=== PATIENT | female | born 1950 | race Caucasian/White ===

== ENCOUNTER 2018-06-09 13:03 | Emergency (ER) | payer MEDICARE, SELFPAY ==
[2018-06-09] VITALS (16 sets, daily range): BP systolic 121–169; BP diastolic 52–98; PULSE 56–90; RESP 11–19; TEMP 36.8; O2SAT 95–99; BMI 27.4
--- NOTE | 2018-06-09 13:11 | DI.RAD.S_ITS ---
PROCEDURE: XR CHEST 1V INDICATIONS: chest pain TECHNIQUE: One view of the chest was acquired. COMPARISON: None. FINDINGS: Surgical changes and devices: None. Lungs and pleura: Lungs are clear. No pleural effusions or pneumothorax. Mediastinum: Mediastinal contours appear normal. Heart size is normal. Bones and chest wall: No suspicious bony lesions. Overlying soft tissues appear unremarkable. IMPRESSION: No acute cardiopulmonary pathology. Dictated by: Norman Oneil M.D. on 06/09/2018 at 13:34 Approved by: Norman Oneil M.D. on 06/09/2018 at 13:35
--- NOTE | 2018-06-09 13:13 | ED.CHESTPAIN ---
HPI - Chest Pain <Estefany Mitchell DO - Last Filed: 06/14/18 00:35> General Chief Complaint: Chest Pain Stated Complaint: STATES SHE THINKS HEART ATTACK Time Seen by Provider: 06/09/18 13:13 Source: patient Mode of arrival: ambulatory Limitations: no limitations History of Present Illness HPI narrative: Patient is a 67-year-old female who presents with left-sided chest and shoulder pain. She said she kind of felt it last night thought it was indigestion weight on her left side was able to go to sleep. However this morning she had coffee and a banana started feeling worse again. She has discomfort now. She denies any dyspnea with exertion no nausea. No diaphoresis. MD complaint: chest pain Duration: constant Pain location: substernal and left chest Quality: aching and heaviness Related Data Home Medications Medication Instructions Recorded Confirmed No Known Home Medications 06/09/18 06/09/18 Allergies Allergy/AdvReac Type Severity Reaction Status Date / Time latex [LATEX] Allergy Mild RASH Verified 06/09/18 13:32 W/BANDAIDS IF LEFT ON LONG bee venom protein (honey bee) Allergy Verified 06/09/18 13:32 ?METAL? Allergy Mild ITCHING Uncoded 06/09/18 13:32 W/EARRINGS Review of Systems <DO Madiha Brown Last Filed: 06/14/18 00:35> Review of Systems ROS Unobtainable: All systems reviewed & are unremarkable except as noted in HPI and below Constitutional Denies chills, Denies fever(s), Denies lethargy and Denies weakness Eyes Denies change in vision, Denies eye discharge, Denies irritation and Denies loss of vision ENT Ears, Nose, Mouth, and Throat: Denies change in voice, Denies neck pain and Denies sore throat Cardiovascular Reports as per HPI, Reports chest pain, Denies lightheadedness, Denies dyspnea and Denies dyspnea on exertion Respiratory Denies cough, Denies dyspnea, Denies dyspnea on exertion and Denies wheezing Gastrointestinal Gastrointestinal: Denies abdominal pain, Denies change in bowel habits, Denies diarrhea, Denies nausea and Denies vomiting Genitourinary Denies hematuria, Denies flank pain, Denies urinary incontinence and Denies urinary urgency Musculoskeletal Denies neck pain Integumentary/Breasts Denies pruritus, Denies erythema, Denies rash and Denies wounds Neurologic Denies loss of vision and Denies weakness Allergic/Immunologic Denies wheezing PFSH <Estefany Mitchell DO - Last Filed: 06/14/18 00:35> Social History (Updated 06/09/18 @ 16:38 by Estefany Mitchell DO) Smoking Status: Former smoker alcohol intake: current substance use type: does not use Social History (Updated 06/09/18 @ 16:38 by Estefany Mitchell DO) Smoking Status: Former smoker alcohol intake: current substance use type: does not use Exam <Estefany Mitchell DO - Last Filed: 06/14/18 00:35> Initial Vital Signs Initial Vital Signs: Vital Signs Temperature 98.2 F 06/09/18 13:07 Pulse Rate 90 06/09/18 13:07 Respiratory Rate 14 06/09/18 13:07 Blood Pressure 169/98 H 06/09/18 13:07 Pulse Oximetry 98 06/09/18 13:07 GENERAL: Well-appearing, well-nourished and in no acute distress. HEENT: Head atraumatic,EOMI, pupils reactive, face symmetric, CARDIOVASCULAR: Regular rate and rhythm without murmurs, rubs or gallops. RESPIRATORY: Breath sounds equal bilaterally, no wheezes rales or rhonchi. ABDOMEN: Soft, nontender. Normoactive bowel sounds all 4 quadrants. No guarding or rebound. EXTREMITIES: Normal range of motion, no clubbing or edema. Neurovascularly intact NEUROLOGICAL: Alert and oriented x4.Normal gait and speech. Cranial nerves II through XII grossly intact. SKIN: Warm, dry, no laceration, no petechiae, no rashes or lesions. <Nancy Rucker MD - Last Filed: 06/10/18 01:36> Initial Vital Signs Initial Vital Signs: Vital Signs Temperature 98.2 F 06/09/18 13:07 Pulse Rate 90 06/09/18 13:07 Respiratory Rate 14 06/09/18 13:07 Blood Pressure 169/98 H 06/09/18 13:07 Pulse Oximetry 98 06/09/18 13:07 Course <Estefany Mitchell DO - Last Filed: 06/14/18 00:35> Orders Ordered: Discontinued Medications Aspirin (Aspirin Chew) 324 mg PO NOW ONE Stop: 06/09/18 13:12 Last Admin: 06/09/18 13:34 Dose: 324 mg Sodium Chloride (Normal Saline 0.9%) 1,000 mls @ 150 mls/hr IV CONT FROYLAN Last Infusion: 06/09/18 20:52 Dose: 0 mls/hr Admin: 06/09/18 13:36 Dose: 150 mls/hr Nitroglycerin (Nitrostat) 0.4 mg SL NOW ONE Stop: 06/09/18 13:12 Last Admin: 06/09/18 13:35 Dose: 0.4 mg Pantoprazole Sodium (Protonix) 40 mg IV NOW ONE Stop: 06/09/18 14:03 Last Admin: 06/09/18 14:13 Dose: 40 mg Consultations Consultation #1: Cardiology Dr. Farooq, has requested to view the EKGs I have texted them to her with patient's permission. Cardiology has reviewed the patient's EKGs. This is a tricky situation. She would like patient to have an echocardiogram this evening is and she would like patient actually transferred over to [facility]. At this time awaiting bed and placement it may be a few hours. For now recommends repeating a troponin in 3 hours. Time: 17:37 Vital Signs - 8 hr 06/09/18 17:30 06/09/18 18:00 06/09/18 18:30 Pulse Rate 65 57 L 65 Respiratory Rate 19 18 13 Blood Pressure [Right Arm] 129/52 L 143/78 H 153/59 H Pulse Oximetry 98 98 95 06/09/18 19:00 06/09/18 19:31 06/09/18 20:00 Pulse Rate 67 60 57 L Respiratory Rate 15 13 14 Blood Pressure [Right Arm] 146/68 H 143/60 H 141/57 H Pulse Oximetry 97 96 97 06/09/18 21:10 06/09/18 21:30 Pulse Rate 72 61 Respiratory Rate 18 16 Blood Pressure [Right Arm] 151/65 H 138/53 L Pulse Oximetry 98 96 <Nancy Rucker MD - Last Filed: 06/10/18 01:36> Orders Ordered: Discontinued Medications Aspirin (Aspirin Chew) 324 mg PO NOW ONE Stop: 06/09/18 13:12 Last Admin: 06/09/18 13:34 Dose: 324 mg Sodium Chloride (Normal Saline 0.9%) 1,000 mls @ 150 mls/hr IV CONT FROYLAN Last Infusion: 06/09/18 20:52 Dose: 0 mls/hr Admin: 06/09/18 13:36 Dose: 150 mls/hr Nitroglycerin (Nitrostat) 0.4 mg SL NOW ONE Stop: 06/09/18 13:12 Last Admin: 06/09/18 13:35 Dose: 0.4 mg Pantoprazole Sodium (Protonix) 40 mg IV NOW ONE Stop: 06/09/18 14:03 Last Admin: 06/09/18 14:13 Dose: 40 mg Vital Signs - 8 hr 06/09/18 17:30 06/09/18 18:00 06/09/18 18:30 Pulse Rate 65 57 L 65 Respiratory Rate 19 18 13 Blood Pressure [Right Arm] 129/52 L 143/78 H 153/59 H Pulse Oximetry 98 98 95 06/09/18 19:00 06/09/18 19:31 06/09/18 20:00 Pulse Rate 67 60 57 L Respiratory Rate 15 13 14 Blood Pressure [Right Arm] 146/68 H 143/60 H 141/57 H Pulse Oximetry 97 96 97 06/09/18 21:10 06/09/18 21:30 Pulse Rate 72 61 Respiratory Rate 18 16 Blood Pressure [Right Arm] 151/65 H 138/53 L Pulse Oximetry 98 96 MDM - Chest Pain <Estefany Mitchell, - Last Filed: 06/14/18 00:35> Lab Data Attestation: I reviewed the patient's lab results. Result diagrams: 06/09/18 13:16 06/09/18 13:16 Lab Results 06/09/18 06/09/18 06/09/18 Range/Units 13:16 13:16 13:16 WBC 6.3 (4.5-11.0) X10^3/uL RBC 4.38 (4.0-5.2) X10^6/uL Hgb 13.0 (12.0-16.0) g/dL Hct 38.7 (36-46) % MCV 88.3 (80-100) fL MCH 29.8 (26-34) PG MCHC 33.7 (30-36) % RDW 13.8 (11.6-14.8) % Plt Count 354 (150-400) X10^3/uL Neut % (Auto) 54.2 (50-75) % Lymph % (Auto) 31.3 (25-40) % [place]er % (Auto) 11.0 (3-14) % Eos % (Auto) 2.7 (2-4) % Baso % (Auto) 0.8 (0-2) % Neut # (Auto) 3400 (5727-2636) /uL Lymph # (Auto) 2000 (8422-8833) /uL Wagoner # (Auto) 700 (0-900) /uL Eos # (Auto) 200 (0-450) /uL Baso # (Auto) 0 (0-100) /uL PT 10.9 (10.1-12.7) SECONDS INR 1.0 (0.9-1.3) APTT 31 (26.4-36.2) SECONDS Sodium 140 (137-145) mmol/L Potassium 3.9 (3.4-5.1) mmol/L Chloride 106 (98-107) mmol/L Carbon Dioxide 24 (22-32) mmol/L BUN 14 (7-17) mg/dL Creatinine 0.70 (0.52-1.04) mg/dL Estimated GFR > 60.0 (>60) mL/min BUN/Creatinine Ratio 20.0 (6-22) Glucose 100 (80-110) mg/dL Calcium 9.2 (8.4-10.2) mg/dL Total Bilirubin 0.5 (0.2-1.3) mg/dL AST 27 (14-36) IU/L ALT 30 (9-52) IU/L Alkaline Phosphatase 106 (38-126) U/L Total Creatine Kinase 92 (30-135) U/L CK-MB (CK-2) TNP CK-MB (CK-2) Rel Index TNP Troponin I < 0.012 (0.01-0.034) ng/mL Total Protein 7.6 (6.3-8.2) g/dL Albumin 4.2 (3.5-5.0) g/dL Globulin 3.4 (1.7-4.1) g/dL Albumin/Globulin Ratio 1.2 (1.0-2.8) Lipase 94 (23-300) U/L 06/09/18 06/09/18 Range/Units 16:05 19:05 WBC (4.5-11.0) X10^3/uL RBC (4.0-5.2) X10^6/uL Hgb (12.0-16.0) g/dL Hct (36-46) % MCV (80-100) fL MCH (26-34) PG MCHC (30-36) % RDW (11.6-14.8) % Plt Count (150-400) X10^3/uL Neut % (Auto) (50-75) % Lymph % (Auto) (25-40) % Wagoner % (Auto) (3-14) % Eos % (Auto) (2-4) % Baso % (Auto) (0-2) % Neut # (Auto) (7634-8176) /uL Lymph # (Auto) (3195-1393) /uL Wagoner # (Auto) (0-900) /uL Eos # (Auto) (0-450) /uL Baso # (Auto) (0-100) /uL PT (10.1-12.7) SECONDS INR (0.9-1.3) APTT (26.4-36.2) SECONDS Sodium (137-145) mmol/L Potassium (3.4-5.1) mmol/L Chloride (98-107) mmol/L Carbon Dioxide (22-32) mmol/L BUN (7-17) mg/dL Creatinine (0.52-1.04) mg/dL Estimated GFR (>60) mL/min BUN/Creatinine Ratio (6-22) Glucose (80-110) mg/dL Calcium (8.4-10.2) mg/dL Total Bilirubin (0.2-1.3) mg/dL AST (14-36) IU/L ALT (9-52) IU/L Alkaline Phosphatase (38-126) U/L Total Creatine Kinase 76 (30-135) U/L CK-MB (CK-2) TNP CK-MB (CK-2) Rel Index TNP Troponin I < 0.012 < 0.012 (0.01-0.034) ng/mL Total Protein (6.3-8.2) g/dL Albumin (3.5-5.0) g/dL Globulin (1.7-4.1) g/dL Albumin/Globulin Ratio (1.0-2.8) Lipase (23-300) U/L Urine Dip Bedside Urine Glucose Negative Bedside Urine Bilirubin - Negative Bedside Urine Ketone - Negative Urine Specific Clifton 1.015 Bedside Urine Occult Blood - Negative Bedside Urine pH 6.0 Bedside Urine Protein - Negative Bedside Urine Urobilinogen - Negative Bedside Urine Nitrite - Negative Bedside Urine Leukocytes - Negative Esterase Imaging Data Chest x-ray: Radiologist's impression: PROCEDURE: XR CHEST 1V INDICATIONS: chest pain TECHNIQUE: One view of the chest was acquired. COMPARISON: None. FINDINGS: Surgical changes and devices: None. Lungs and pleura: Lungs are clear. No pleural effusions or pneumothorax. Mediastinum: Mediastinal contours appear normal. Heart size is normal. Bones and chest wall: No suspicious bony lesions. Overlying soft tissues appear unremarkable. IMPRESSION: No acute cardiopulmonary pathology. Dictated by: Norman Oneil M.D. on 06/09/2018 at 13:34 Approved by: Norman Oneil M.D. on 06/09/2018 at 13:35 ECG Data Attestation: I personally reviewed and interpreted this ECG as follows: Prior ECG tracings: available for review Interpretation: Sinus rhythm left bundle branch block, He EKG 1 year ago showed gave inversions in precordial leads V2 and V3. With a narrow QRS. EKG 2.: Sinus rhythm rate 56 left bundle branch present no ST changes MDM Narrative Medical decision making narrative: The patient still feels like a pill is stuck in her throat but overall does not want anything for pain. She actually has a new left bundle branch block previously she had T-wave inversions in V2 and V3. Concern is for possible on [place] she has 2-troponins is feels like she may have difficulty swallowing but has been able to swallow and eat without any difficulty. Cardiology concern is for new left bundle would like patient transferred for echocardiogram tonight. The patient signed out to , anticipate transfer to [facility], repeat troponin due at 7:00 p.m. may need to talk to the hospitalist. <Nancy Rucker MD - Last Filed: 06/10/18 01:36> Medical Records Data Attestation: I reviewed the patient's medical records. Lab Data Attestation: I reviewed the patient's lab results. Lab Results 03/31/19 03/31/19 03/31/19 Range/Units 13:16 13:16 13:16 WBC 6.3 (4.5-11.0) X10^3/uL RBC 4.38 (4.0-5.2) X10^6/uL Hgb 13.0 (12.0-16.0) g/dL Hct 38.7 (36-46) % MCV 88.3 (80-100) fL MCH 29.8 (26-34) PG MCHC 33.7 (30-36) % RDW 13.8 (11.6-14.8) % Plt Count 354 (150-400) X10^3/uL Neut % (Auto) 54.2 (50-75) % Lymph % (Auto) 31.3 (25-40) % Wagoner % (Auto) 11.0 (3-14) % Eos % (Auto) 2.7 (2-4) % Baso % (Auto) 0.8 (0-2) % Neut # (Auto) 3400 (4950-9420) /uL Lymph # (Auto) 2000 (1912-3962) /uL [place]er # (Auto) 700 (0-900) /uL Eos # (Auto) 200 (0-450) /uL Baso # (Auto) 0 (0-100) /uL PT 10.9 (10.1-12.7) SECONDS INR 1.0 (0.9-1.3) APTT 31 (26.4-36.2) SECONDS Sodium 140 (137-145) mmol/L Potassium 3.9 (3.4-5.1) mmol/L Chloride 106 (98-107) mmol/L Carbon Dioxide 24 (22-32) mmol/L BUN 14 (7-17) mg/dL Creatinine 0.70 (0.52-1.04) mg/dL Estimated GFR > 60.0 (>60) mL/min BUN/Creatinine Ratio 20.0 (6-22) Glucose 100 (80-110) mg/dL Calcium 9.2 (8.4-10.2) mg/dL Total Bilirubin 0.5 (0.2-1.3) mg/dL AST 27 (14-36) IU/L ALT 30 (9-52) IU/L Alkaline Phosphatase 106 (38-126) U/L Total Creatine Kinase 92 (30-135) U/L CK-MB (CK-2) TNP CK-MB (CK-2) Rel Index TNP Troponin I < 0.012 (0.01-0.034) ng/mL Total Protein 7.6 (6.3-8.2) g/dL Albumin 4.2 (3.5-5.0) g/dL Globulin 3.4 (1.7-4.1) g/dL Albumin/Globulin Ratio 1.2 (1.0-2.8) Lipase 94 (23-300) U/L 06/09/18 06/09/18 Range/Units 16:05 19:05 WBC (4.5-11.0) X10^3/uL RBC (4.0-5.2) X10^6/uL Hgb (12.0-16.0) g/dL Hct (36-46) % MCV (80-100) fL MCH (26-34) PG MCHC (30-36) % RDW (11.6-14.8) % Plt Count (150-400) X10^3/uL Neut % (Auto) (50-75) % Lymph % (Auto) (25-40) % Wagoner % (Auto) (3-14) % Eos % (Auto) (2-4) % Baso % (Auto) (0-2) % Neut # (Auto) (7924-9200) /uL Lymph # (Auto) (7605-1110) /uL Wagoner # (Auto) (0-900) /uL Eos # (Auto) (0-450) /uL Baso # (Auto) (0-100) /uL PT (10.1-12.7) SECONDS INR (0.9-1.3) APTT (26.4-36.2) SECONDS Sodium (137-145) mmol/L Potassium (3.4-5.1) mmol/L Chloride (98-107) mmol/L Carbon Dioxide (22-32) mmol/L BUN (7-17) mg/dL Creatinine (0.52-1.04) mg/dL Estimated GFR (>60) mL/min BUN/Creatinine Ratio (6-22) Glucose (80-110) mg/dL Calcium (8.4-10.2) mg/dL Total Bilirubin (0.2-1.3) mg/dL AST (14-36) IU/L ALT (9-52) IU/L Alkaline Phosphatase (38-126) U/L Total Creatine Kinase 76 (30-135) U/L CK-MB (CK-2) TNP CK-MB (CK-2) Rel Index TNP Troponin I < 0.012 < 0.012 (0.01-0.034) ng/mL Total Protein (6.3-8.2) g/dL Albumin (3.5-5.0) g/dL Globulin (1.7-4.1) g/dL Albumin/Globulin Ratio (1.0-2.8) Lipase (23-300) U/L Urine Dip Bedside Urine Glucose Negative Bedside Urine Bilirubin - Negative Bedside Urine Ketone - Negative Urine Specific Clifton 1.015 Bedside Urine Occult Blood - Negative Bedside Urine pH 6.0 Bedside Urine Protein - Negative Bedside Urine Urobilinogen - Negative Bedside Urine Nitrite - Negative Bedside Urine Leukocytes - Negative Esterase ECG Data Attestation: I personally reviewed and interpreted this ECG as follows: (For see below) Interpretation: Twelve lead EKG performed June 09, 2018 at 2:08 p.m., as follows: Regular ventricular rhythm with a rate of 56 beats per minute KS interval 182 milliseconds QRS duration 146 millisecond QTC interval 466 millisecond Left axis deviation Nonspecific ST T wave changes Interpretation: Sinus bradycardia; left axis deviation; left bundle-branch block; abnormal EKG as interpreted by ED MD Comparison EKG 05/21/2017: No left bundle branch block. MDM Narrative Medical decision making narrative: [place] note: Patient was signed out to me by Dr. Mitchell, pending transfer to [facility] for echocardiogram and stress test, secondary to her new left bundle branch block within the last year. The patient had had 2 negative troponins, and at the request of the vending machine assembler, had a 3rd one in process, which turned out to be negative. The patient was symptom-free in the emergency department at the time of my assumption of care, and remained so throughout the rest of her stay. Around 2099, we received a call from [facility], informing us that they did not have any admission beds, and would not have any till at least the next morning. As such, the patient could not be transferred. I did speak with the vending machine assembler again, and she stated that the findings were reassuring, but that she did feel the patient should have an echocardiogram and stress test the next day. She stated this could be done at our facility, if needed, since the patient cannot be transferred. I spoke with Dr. George, who is the hospitalist on-call and also, a physician in the clinic of the patient's primary for provider, June Christopher. I did not feel at this point, with 3 negative troponins and symptoms that had been going on for 24 hours, that the patient necessarily needed admission; however, I did feel that the patient should be seen and have an expedited stress test and echocardiogram set up. I discussed this situation with Dr. George who was in agreement. He stated he would call the clinic tomorrow morning to let them know about the patient, and that the patient should call 1st thing in the morning to set up an appointment to be seen tomorrow by whichever provider was available. I discussed all this with the patient, who is very well appearing and without complaints. The patient was agreeable to this plan. We have discussed the findings and the situation, as well as the plan. We have also discussed the usual indications for return. Discharge Plan Departure Patient Disposition: Home Clinical Impression: Left bundle branch block Chest pain Qualifiers: Chest pain type: other chest pain Qualified Code(s): R07.89 - Other chest pain Discharge Date/Time: 06/09/18 21:52 Interventions: ED Discharge Assessment Last Done: 06/09/18 21:52 Instructions: DI for Chest Pain Activity Restrictions/Additional Instructions: Your labs, including 3 sets of cardiac enzymes, look good. There is no evidence of a heart attack [facility]. However, your case has been discussed with the vending machine assembler at [facility], and she would like you to have a stress test and echocardiogram tomorrow. I have discussed the case also with Dr. George, who works in your primary provider's office and is on-call for our [facility], and he stated that you should call their office 1st thing in the morning to get an appointment to be seen and have your test scheduled. You will be seen by whatever provider is available. If you develop worsening symptoms overnight, or any other concerns, you may return to the emergency department. Prescriptions: No Action No Known Home Medications RF: 0 Referrals: June Christopher PA-C [Primary Care Provider] -
[2018-06-09 13:29] LABS: Add Manual Diff / Slide Review NO; Basophils Absolute Auto 0 /uL (0-100); Basophils Percent Auto 0.8 % (0-2); Eosinophils Absolute Auto 200 /uL (0-450); Eosinophils Percent Auto 2.7 % (2-4); Hematocrit 38.7 % (36-46); Lymphocytes Absolute Auto 2000 /uL (1100-4500); Lymphocytes Percent Auto 31.3 % (25-40); Mean Corpuscular HGB Conc 33.7 % (30-36); Mean Corpuscular Hemoglobin 29.8 PG (26-34); Mean Corpuscular Volume 88.3 fL (80-100); Monocytes Absolute Auto 700 /uL (0-900); Neutrophils Absolute Auto 3400 /uL (1500-7000); Neutrophils Percent Auto 54.2 % (50-75); Platelet Count 354 X10^3/uL (150-400); Red Blood Cell Count 4.38 X10^6/uL (4.0-5.2); Red Cell Distribution Width 13.8 % (11.6-14.8); White Blood Cell Count 6.3 X10^3/uL (4.5-11.0)
[2018-06-09 13:30] LABS: Prothrombin Time 10.9 SECONDS (10.1-12.7)
[2018-06-09 13:32] LABS: PTT Partial Thromboplastin Tim 31 SECONDS (26.4-36.2)
[2018-06-09 13:34] LABS: Alanine Aminotransferase 30 IU/L (9-52); Albumin 4.2 g/dL (3.5-5.0); Albumin Globulin Ratio 1.2 (1.0-2.8); Alkaline Phosphatase 106 U/L (38-126); Aspartate Aminotransferase 27 IU/L (14-36); Bilirubin Total 0.5 mg/dL (0.2-1.3); Blood Urea Nitrogen 14 mg/dL (7-17); Calcium 9.2 mg/dL (8.4-10.2); Carbon Dioxide 24 mmol/L (22-32); Chloride 106 mmol/L (98-107); Creatine Kinase 92 U/L (30-135); Estimated Glomerular Filt Rate > 60.0 mL/min (>60); Globulin 3.4 g/dL (1.7-4.1); Glucose 100 mg/dL (80-110); HEMOLYSIS < 15 (0-50); Lipase 94 U/L (23-300); Potassium 3.9 mmol/L (3.4-5.1); Sodium 140 mmol/L (137-145); Total Protein 7.6 g/dL (6.3-8.2)
[2018-06-09] MEDS: ASPIRIN 81 MG TAB 324 MG PO (13:34)
[2018-06-09] MEDS: NITROGLYCERIN 0.4 MG SL TAB SL (13:35)
[2018-06-09] MEDS: SODIUM CHLORIDE 0.9% 1,000 ML 150 ML IV (13:36)
[2018-06-09 13:45] LABS: Troponin I < 0.012 ng/mL (0.01-0.034)
[2018-06-09] MEDS: PANTOPRAZOLE 40 MG VIAL IV (14:13)
[2018-06-09 16:33] LABS: Troponin I < 0.012 ng/mL (0.01-0.034)
[2018-06-09 19:25] LABS: Creatine Kinase 76 U/L (30-135)
[2018-06-09 19:38] LABS: Troponin I < 0.012 ng/mL (0.01-0.034)
== END 2018-06-09 21:52 | disposition home or self-care (01) ==
PROVIDERS: Emergency Medicine; Emergency Provider Emergency Medicine; PCP Physician Assistant
DX: I44.7 Left bundle-branch block, unspecified (principal)
CPT/HCPCS: 36415; 36591; 71045; 80053; 81003; 82550; 83690; 84484; 85025; 85610; 85730; 93005; 93041; 96361; 96374; 99285; C9113

== ENCOUNTER → 2018-06-20 07:50 | Outpatient (CLI) | payer MEDICARE, SELFPAY ==
--- NOTE | 2018-06-20 | DI.RAD.S_ITS ---
PROCEDURE: FL UPPER GI W AIR INDICATIONS: Chest pain, unspecified Gastro-esophageal reflux COMPARISON: None. FINDINGS: KUB: Preprocedural cement storage worker film demonstrates a normal bowel gas pattern. No suspicious abdominal calcifications. Visualized solid organ contours appear normal. Bony structures appear unremarkable. Esophagus: Esophageal mucosa is normal on air-contrast views. On single-contrast views, there is normal esophageal peristalsis. No strictures, extrinsic mass effects, or diverticula. No hiatal hernia. Mild elicited gastroesophageal reflux is noted with contrast reflux to distal one third of esophageal lumen.. There is normal transit of a calibrated barium tablet through the esophagus. Stomach: The stomach is normally distensible, with normal rugal fold thickness. No mucosal masses or ulcers. Pylorus and duodenal bulb appear normal in morphology. Duodenal folds are normal in thickness as well. IMPRESSION: Mild gastroesophageal reflux. No gross ulceration or intraluminal filling defect. No abnormal stricture. Normal appearing stomach. Dictated by: Norman Oneil M.D. on 06/20/2018 at 10:59 Approved by: Norman Oneil M.D. on 06/20/2018 at 11:03
--- NOTE | 2018-06-20 | DI.ECHO.S_ITS ---
[facility] +---------+ : : [address] [place] : : : : [id number] : : : : Phone: [phone]---------+ Echocardiogram Report + + :Name: HUMA BAIRES Study Date: 06/20/2018 Height: 63 in : :[facility] Exam Location: [facility] Weight: 155 lb : : Gender: Female BSA: 1.7 m2 : :: 1950 Age: 67 yrs BP: 118/58 mmHg: :Reason For Study: CHEST PAIN : : Performed By: Gustavo Hermosillo : :Referring: KARMA DELUNA : + + Interpretation Summary Left ventricular systolic function is low normal with the ejection fraction visually estimated to be 50-55% without any focal wall motion abnormalities and appears slightly less dynamic compared to the previous study. The left ventricle is normal in size. Diastolic function could not be accurately assessed due to contradictory data. The right ventricle is normal in size and function and is unchanged compared to the previous study. The right ventricular systolic pressure is estimated to be at least 25 mmHg based on an estimated right atrial pressure of 3 mm Hg, and is unchanged compared to the previous study. The left atrium is mildly dilated and the right atrium is borderline dilated. Both are increased slightly compared to the previous study. There is mild mitral regurgitation that is unchanged compared to the previous study. There is mild tricuspid regurgitation that is slightly more prominent compared to the previous study. There is no other significant valvular heart disease. Procedure: A two-dimensional transthoracic echocardiogram with color flow and Doppler was performed. The study quality was technically good. Comparison is made with the echocardiogram of 07/12/15. The patient was in normal sinus rhythm during the exam. Left Ventricle: The left ventricle is normal in size. There is normal left ventricular wall thickness. Left ventricular systolic function is low normal. The ejection fraction is estimated to be 50-55%. There are no focal wall motion abnormalities. This is slightly less dynamic compared to the previous study. Diastolic function could not be accurately assessed due to contradictory data. Right Ventricle: The right ventricle is normal in size and function. This is unchanged compared to the previous study. Atria: The left atrium is mildly dilated. The right atrium is borderline dilated. This is increased slightly compared to the previous study. The interatrial septum is intact with no evidence for an atrial septal defect. Mitral Valve: The mitral valve leaflets are slightly calcified. There is mild mitral regurgitation. This is unchanged compared to the previous study. Aortic Valve: The aortic valve is trileaflet. The aortic valve is slightly calcified. The aortic valve opens well. There is trace aortic regurgitation. Tricuspid Valve: The tricuspid valve is normal in structure and function. There is mild tricuspid regurgitation. This is slightly more prominent compared to the previous study. The right ventricular systolic pressure is estimated to be at least 25 mmHg based on an estimated right atrial pressure of 3 mm Hg. This is unchanged compared to the previous study. Pulmonic Valve: The pulmonic valve is normal in structure and function. There is trace pulmonic regurgitation. There is no other significant valvular heart disease. Great Vessels: The aortic root is normal size. The dimensions of the ascending aorta are normal. The pulmonary artery is normal size. The IVC is of normal diameter and collapses greater than 50% with a sniff. This suggests a low right atrial pressure of 3 mm Hg. Pericardium/ Pleura There is no pericardial effusion. There is no pleural effusion. MMode/2D Measurements & Calculations LVIDd: 4.3 cm LVOT diam: 1.9 cm LVIDs: 2.7 cm Ao root diam: 3.0 cm FS: 36.7 % asc Aorta Diam: 2.9 cm EPSS: 0.46 cm Ao Arch Diam (Prox Trans): 2.3 cm IVSd: 0.85 cm LVPWd: 0.99 cm LV og. diameter/BSA (cm/m^2): 2.5 LV sys. diameter/BSA (cm/m^2): 1.6 LA dimension: 3.4 cm RA long axis: 5.2 cm LA A2 area: 21.9 cm2 RA area: 18.1 cm2 LA A4 area: 20.4 cm2 RA vol: 53.0 ml LA length (vol): 5.3 cm RA : 30.6 ml/m2 LA vol: 71.0 ml IVC diam: 1.7 cm LA vol index: 40.9 ml/m2 Doppler Measurements & Calculations Ao V2 max: 142.8 cm/sec LVOT Max Omer: 105.3 cm/sec Ao V2 mean: 103.9 cm/sec LV V1 max P.4 mmHg Ao max P.2 mmHg LV V1 VTI: 23.2 cm Ao mean P.7 mmHg EVELIN(I,D): 2.1 cm2 Ao V2 VTI: 31.7 cm EVELIN(V,D): 2.1 cm2 sev ratio: 0.73 EVELIN indexed to BSA (cm^2/m^2): 1.2 MV E max omer: 65.5 cm/sec TR max omer: 237.4 cm/sec MV A max omer: 79.1 cm/sec TR max P.5 mmHg MV E/A: 0.83 PA V2 max: 106.0 cm/sec Med Peak E' Omer: 5.7 cm/sec PA V2 mean: 67.3 cm/sec E/E' med: 11.5 PA mean P.1 mmHg Lat Peak E' Omer: 6.6 cm/sec PA pr(Accel): 44.1 mmHg E/E' lat: 9.9 E/e' average: 10.7 MV dec time: 0.22 sec SV(LILY): 67.3 ml Reading Physician:SELENE
== END ==
PROVIDERS: PCP Physician Assistant; Visit Provider Physician Assistant
DX: R07.9 Chest pain, unspecified (principal); I08.1 Rheumatic disorders of both mitral and tricuspid valves; K21.9 Gastro-esophageal reflux disease without esophagitis
CPT/HCPCS: 74247; 93306

== ENCOUNTER → 2018-07-03 08:08 | Outpatient (CLI) | payer MEDICARE, SELFPAY ==
--- NOTE | 2018-07-03 09:17 | PM.TREADMILL ---
Cardiac Stress Test Report Referral & Results Date Patient Seen: 07/03/18 Requesting provider: June Christopher Indication: New left bundle branch block Rest ECG: Left bundle branch block Procedure Note: This initially was started as a exercise Cardiolite as ordered by the ordering provider. However due to the presence of the left bundle branch block exercise was aborted, patient's heart rate was allowed to come down into the 70s and this was converted to a resting Lexiscan. After both written and verbal informed consent the patient had an IV started by the diagnostic imaging RN, and then was hooked up to the treadmill monitoring system. The Lexiscan material, and then the Cardiolite tracer, were administered sequentially. An additional 3 min was spent monitoring the patient while supine on the gurney. The patient had a normal response to all infused materials. Impression: Please see perfusion imaging report for details regarding possible ischemia Please note: Actual ECG tracings can be found in the PACS system.
--- NOTE | 2018-07-04 17:12 | DI.NM.S_ITS ---
DATE OF SERVICE: 07/03/2018 PROCEDURE: Pharmacological perfusion study. INDICATIONS: Left bundle-branch block. RADIOPHARMACEUTICAL: 26.3 mCi technetium-99m Myoview IV was injected at stress and 27.1 mCi technetium-99m Myoview IV was injected at rest. CARDIAC STRESS: Patient underwent IV Lexiscan perfusion study under the supervision of an attending staff using standard IV Lexiscan protocol. She remained hemodynamically stable. Baseline EKG revealed sinus rhythm with left bundle-branch block pattern. Stress EKG did not reveal any new convincing ischemic changes. There were no new significant arrhythmias. No significant symptoms were reported. RAW DATA: significant breast shadow was seen. GATED STUDY: Resting stress LV ejection fraction 66%. Stress LV ejection fraction 71% without any wall motion abnormalities. No transient ischemic dilatation. TID ratio is 1.06, which is within normal limits. Resting LV end- diastolic volume is 128 mL. Lung/heart ratio is 0.29, which is within normal limits. MYOCARDIAL PERFUSION SCAN: Stress supine and resting supine images revealed severely decreased perfusion of predominantly anteroapex and distal septum which got partially improved during prone images. In prone images, there was moderate to severely decreased perfusion of the same area. No reversible ischemia. CONCLUSION: I'll call this study likely a normal myocardial perfusion study with evidence of persistent tissue attenuation artifact in the form of anterior apical and distal anteroseptal defect as stated above. During raw images, significant breast shadow was seen. Patient has underlying left bundle-branch block which can cause subtle perfusion abnormalities as well. [place] is moving well. Normal wall motion goes against the diagnosis of previous transmural myocardial infarction. Hence, most likely we are dealing with tissue attenuation artifact. Overall left ventricular (LV) function is preserved. This is a low-risk myocardial perfusion study. KaterinIrasema - PHOEBE/ulysses/ab doc#: [id number]/job#: [id number] dd: 07/04/2018 16:41:00 dt: 07/04/2018 17:02:00 DICTATING MD/COPIES TO: Arturo Murillo MD COPIES MNE: JORDIN
== END ==
PROVIDERS: PCP Physician Assistant; Visit Provider Physician Assistant
DX: I44.7 Left bundle-branch block, unspecified (principal); R07.9 Chest pain, unspecified; R94.31 Abnormal electrocardiogram [ECG] [EKG]
CPT/HCPCS: 78452; 93016; 93017; 93018; A9502; J2785

== ENCOUNTER → 2018-08-03 08:04 | Outpatient (CLI) | payer MEDICARE, SELFPAY ==
--- NOTE | 2018-08-03 | DI.MG.S_ITS ---
BILATERAL DIGITAL SCREENING MAMMOGRAM 3D/2D WITH CAD: 08/03/2018 CLINICAL: Routine screening. Comparison is made to exams dated: 06/22/2016 mammogram, 06/04/2015 mammogram, and 06/02/2014 mammogram - [facility]. The tissue of both breasts is heterogeneously dense. This may lower the sensitivity of mammography. Current study was also evaluated with a Computer Aided Detection (CAD) system. There are benign calcifications in both breasts. No significant masses, calcifications, or other findings are seen in either breast. There has been no significant interval change. IMPRESSION: There is no mammographic evidence of malignancy. A 1 year screening mammogram is recommended. This exam was interpreted at Station ID: [id number]. NOTE: For mammograms, a report in lay terms will be sent to the patient. Approximately 15% of breast malignancies will not be visualized mammographically. In the management of a palpable breast mass, a negative mammogram must not discourage biopsy of a clinically suspicious lesion. Electronically Signed By: Luis M woodward/bernadette:08/06/2018 10:25:58 copy to: Maria D Sanders letter sent: Normal Exam ACR BI-RADS Category 2: Benign Finding(s) 3342F
== END ==
PROVIDERS: PCP Student in an Organized Health Care Education/Training Program; Visit Provider Physician Assistant
DX: Z12.31 Encounter for screening mammogram for malignant neoplasm of breast (principal)
CPT/HCPCS: 77063; 77067

== ENCOUNTER → 2020-07-22 12:17 | Outpatient (CLI) | payer MEDICARE, SELFPAY ==
--- NOTE | 2020-07-22 | DI.RAD.S_ITS ---
PROCEDURE: XR LUMBAR SPINE 2-3V INDICATIONS: LOW BACK PAIN TECHNIQUE: 3 views of the lumbar spine were acquired. COMPARISON: None. FINDINGS: Bones: 5 [id number] vertebrae are present. There is moderate levoscoliosis of lumbar spine centered at L2 level. Straightening of normal lumbar lordosis is seen. Degenerative endplate changes and bilateral facet arthrosis throughout lumbar spine is noted. There is diffuse osteopenia. No gross acute vertebral body compression fractures. No suspicious bony lesions. Patient is status post bilateral total hip arthroplasty. Soft tissues: Overlying bowel gas pattern is normal. No suspicious soft tissue calcifications. IMPRESSION: Osteopenia. Moderate levoscoliosis of lumbar spine centered at L2 level. No gross acute lumbar spine compression fracture or spondylolisthesis. Diffuse osteopenia. Degenerative disc disease throughout lumbar spine. Dictated by: Norman Oneil M.D. on 07/22/2020 at 14:34 Approved by: Norman Oneil M.D. on 07/22/2020 at 14:36
== END ==
PROVIDERS: PCP Student in an Organized Health Care Education/Training Program; Referring Provider Student in an Organized Health Care Education/Training Program; Visit Provider Student in an Organized Health Care Education/Training Program
DX: M54.5 Low back pain (principal); M41.86 Other forms of scoliosis, lumbar region; M47.816 Spondylosis without myelopathy or radiculopathy, lumbar region; M85.88 Other specified disorders of bone density and structure, other site
CPT/HCPCS: 72100

== ENCOUNTER → 2022-07-20 08:33 | Outpatient (CLI) | payer MEDICARE, SELFPAY ==
--- NOTE | 2022-07-20 | DI.US.S_ITS ---
PROCEDURE: US ABD AORTA ANEURYSM SCREEN INDICATIONS: Encounter for screening for cardiovascular disorders TECHNIQUE: Real time scanning was performed of the aorta and iliac arteries, with image documentation. COMPARISON: None. FINDINGS: Aorta: Proximal aortic diameter measures 2.7 cm. Mid-aorta measures 1.8 cm. Distal aortic diameter is 1.7 cm. Atherosclerotic changes noted in the imaged abdominal aorta. Iliac arteries: Right common iliac artery measures 0.8 cm. Left common iliac artery measures 0.7 cm. IMPRESSION: No sonographic evidence for abdominal aortic aneurysm. Atherosclerosis. Recommend follow-up ultrasound in 5 years. Dictated by: Luis M Echevarria M.D. on 07/20/2022 at 9:59 Approved by: Luis M Echevarria M.D. on 07/20/2022 at 10:01
== END ==
PROVIDERS: PCP Student in an Organized Health Care Education/Training Program; Referring Provider Student in an Organized Health Care Education/Training Program; Visit Provider Student in an Organized Health Care Education/Training Program
DX: Z13.6 Encounter for screening for cardiovascular disorders (principal); I70.0 Atherosclerosis of aorta
CPT/HCPCS: 76706